=== PATIENT | female | born 1975 | race Asian ===

== ENCOUNTER 2017-11-26 14:43 | Emergency (ER) | payer OTHER ==
[2017-11-26 15:27] LABS: BILIRUBIN,URINE NEGATIVE (NEGATIVE); GLUCOSE, URINE (UA) >=1000 mg/dL (NEGATIVE); KETONES,URINE (UA) TRACE mg/dL (NEGATIVE); LEUKOCYTE ESTERASE, URINE NEGATIVE (NEGATIVE); NITRITE,URINE NEGATIVE (NEGATIVE); OCCULT BLOOD,URINE LARGE (NEGATIVE); PROTEIN,URINE NEGATIVE (NEGATIVE); UROBILINOGEN,URINE 0.2 (NORMAL) E.U./dL (NORMAL)
[2017-11-26 15:28] LABS: CLARITY,URINE CLEAR (CLEAR)
[2017-11-26 15:36] LABS: BACTERIA,URINE Rare /HPF (None Seen); RBC,URINE 0-5 /HPF (0-5); SQUAMOUS EPITHELIAL CELL,UR FEW Squamous (<= Few)
[2017-11-26 15:48] LABS: BASOPHILS # (AUTO) 0.1 10^3/uL (0.0-0.1); BASOPHILS % (AUTO) 1.2 %; EOSINOPHILS # (AUTO) 0.1 10^3/uL (0.0-0.7); EOSINOPHILS % (AUTO) 1.3 %; HGB - HEMOGLOBIN 14.7 g/dL (12.0-16.0); LYMPHOCYTES # (AUTO) 2.5 10^3/uL (1.5-3.5); LYMPHOCYTES % (AUTO) 24.5 %; MEAN CORPUSCULAR HEMOGLOBIN 28.4 pg (27.0-31.0); MEAN CORPUSCULAR HGB CONC 33.9 g/dL (32.0-36.0); MEAN CORPUSCULAR VOLUME 83.8 fL (81.0-99.0); MEAN PLATELET VOLUME 9.7 fL (7.9-10.8); MONOCYTES # (AUTO) 0.7 10^3/uL (0.0-1.0); NEUTROPHILS # (AUTO) 6.8 10^3/uL (1.5-6.6); PLT - PLATELET COUNT 204 10^3/uL (130-450); RED BLOOD COUNT 5.18 10^6/uL (4.20-5.40); RED CELL DISTRIBUTION WIDTH 13.5 % (12.0-15.0); WHITE BLOOD COUNT 10.2 x10^3/uL (4.8-10.8)
--- NOTE | 2017-11-26 15:50 | ED Physician Documentation ---
History of Present Illness - Stated complaint Stated Complaint: 6 WEEKS PG/BLEEDING - Chief complaint Chief Complaint: General - History obtained from History obtained from: Patient, Family - History of Present Illness Timing: Today Pain level max: 2 Pain level now: 2 Improved by: nothing Worsened by: nothing - Additonal information Additional information: Patient is 42 yo F est 6 weeks EGA. states vaginal bleeding today and concerned about a miscarriage. States took a home test that was positive Review of Systems Ten Systems: 10 systems reviewed and negative Constitutional: denies: Fever, Chills Ears: denies: Ear pain Nose: denies: Rhinorrhea / runny nose, Congestion Throat: denies: Sore throat Cardiac: denies: Chest pain / pressure Respiratory: denies: Cough : denies: Dysuria, Frequency, Hesitancy Skin: denies: Rash Musculoskeletal: denies: Neck pain, Back pain Neurologic: denies: Headache PD PAST MEDICAL HISTORY - Past Medical History Past Medical History: No - Past Surgical History Past Surgical History: Yes /BOILER TENDER: section - Present Medications Home Medications: Ambulatory Orders Medication Instructions Recorded Confirmed Metformin HCl 500 mg PO BID #60 tablet 11/26/17 - Allergies Allergies/Adverse Reactions: Allergies Allergy/AdvReac Type Severity Reaction Status Date / Time No Known Drug Allergies Allergy Verified 11/26/17 15:00 - Social History Does the pt smoke?: Yes Smoking Status: Current every day smoker Does the pt drink ETOH?: No Does the pt have substance abuse?: No - Immunizations Immunizations are current?: Yes - POLST Patient has POLST: No PD ED PE NORMAL - Vitals Vital signs reviewed: Yes - General General: Alert and oriented X 3, No acute distress - HEENT HEENT: Moist mucous membranes - Neck Neck: Supple, no meningeal sign - Cardiac Cardiac: RRR - Respiratory Respiratory: No respiratory distress, Clear bilaterally - Abdomen Abdomen: Soft, Non tender, Non distended - Derm Derm: Warm and dry - Neuro Neuro: Alert and oriented X 3 - Psych Psych: Normal mood, Normal affect Results - Vitals Vitals: Vital Signs - 24 hr 11/26/17 11/26/17 15:00 17:59 Temperature 36.3 C L Heart Rate 89 80 Respiratory 16 18 Rate Blood Pressure 108/68 105/83 H O2 Saturation 97 97 Oxygen O2 Source Room air - Labs Labs: Laboratory Tests 11/26/17 11/26/17 11/26/17 15:12 15:35 15:35 WBC RBC Hgb Hct MCV MCH MCHC RDW Plt Count MPV Neut # Lymph # [place] # Eos # Baso # Absolute Nucleated RBC Nucleated RBC % Sodium 128 L Potassium 3.6 Chloride 96 L Carbon Dioxide 20 L Anion Gap 12.0 BUN 19 Creatinine 0.6 Estimated GFR (MDRD) 111 Glucose 398 H POC Whole Bld Glucose Calcium 9.0 Total Bilirubin < 0.2 L AST 15 ALT 16 Alkaline Phosphatase 159 H Total Protein 7.2 Albumin 3.8 Globulin 3.4 Albumin/Globulin Ratio 1.1 Lipase 36 HCG, Quant < 0.60 Urine Color YELLOW Urine Clarity CLEAR Urine pH 6.0 Ur Specific [place] <=1.005 Urine Protein NEGATIVE Urine Glucose (UA) >=1000 H Urine Ketones TRACE Urine Occult Blood LARGE H Urine Nitrite NEGATIVE Urine Bilirubin NEGATIVE Urine Urobilinogen 0.2 (NORMAL) Ur Leukocyte Esterase NEGATIVE Urine RBC 0-5 Urine WBC 0-3 Ur Squamous Epith Cells FEW Squamous Urine Bacteria Rare Ur Microscopic Review INDICATED Urine Culture Comments NOT INDICATED Blood Type Antibody Screen 11/26/17 11/26/17 11/26/17 15:35 15:38 17:52 WBC 10.2 RBC 5.18 Hgb 14.7 Hct 43.4 MCV 83.8 MCH 28.4 MCHC 33.9 RDW 13.5 Plt Count 204 MPV 9.7 Neut # 6.8 H Lymph # 2.5 [place] # 0.7 Eos # 0.1 Baso # 0.1 Absolute Nucleated RBC 0.00 Nucleated RBC % 0.0 Sodium Potassium Chloride Carbon Dioxide Anion Gap BUN Creatinine Estimated GFR (MDRD) Glucose POC Whole Bld Glucose 274 H Calcium Total Bilirubin AST ALT Alkaline Phosphatase Total Protein Albumin Globulin Albumin/Globulin Ratio Lipase HCG, Quant Urine Color Urine Clarity Urine pH Ur Specific [place] Urine Protein Urine Glucose (UA) Urine Ketones Urine Occult Blood Urine Nitrite Urine Bilirubin Urine Urobilinogen Ur Leukocyte Esterase Urine RBC Urine WBC Ur Squamous Epith Cells Urine Bacteria Ur Microscopic Review Urine Culture Comments Blood Type O POSITIVE Antibody Screen NEGATIVE - Rads (name of study) pelvic US Radiology: Prelim report reviewed, EMP read contemporaneously, See rad report ( normal. no IUP or extrauterine .) PD MEDICAL DECISION MAKING - ED course Complexity details: reviewed results, re-evaluated patient, considered differential, d/w patient, d/w family ED course: Patient is a 42-year-old female who presents to the emergency department concerned about a possible miscarriage, her quantitative hCG is negative and her ultrasound is normal. She is however found to be diabetic. She states she has never been told she is diabetic before. Will start on metformin and have her follow-up closely with her doctor. She recently moved here and is currently looking for a doctor so will provide names of local physicians that she can call to follow-up. She is not vomiting. No evidence of DKA. Patient and family counseled regarding signs and symptoms for which I believe and urgent re-evaluation would be necessary. Patient with good understanding of and agreement to plan and is comfortable going home at this time This document was made in part using voice recognition software. While efforts are made to proofread this document, sound alike and grammatical errors may occur. Departure - Departure Disposition: 01 Home, Self Care Clinical Impression: Vaginal bleeding, New onset type 2 diabetes mellitus Condition: Good Instructions: ED Diabetes General Info Follow-Up: [facility] [Provider Group] [facility] [Provider Group] [facility] [Provider Group] Prescriptions: Metformin HCl 500 mg PO BID #60 tablet Comments: Take the metformin as prescribed. You need to follow up closely with your doctor for your diabetes. Discharge Date/Time: 11/26/17 18:05
[2017-11-26 16:02] LABS: ALBUMIN 3.8 g/dL (3.2-5.5); ALBUMIN/GLOBULIN RATIO 1.1 (1.0-2.2); ALKALINE PHOSPHATASE 159 IU/L (42-121); ALT ALANINE AMINOTRANSFERASE 16 IU/L (10-60); AST ASPARTATE AMINOTRANSFERASE 15 IU/L (10-42); BILIRUBIN,TOTAL < 0.2 mg/dL (0.2-1.0); BUN - BLOOD UREA NITROGEN 19 mg/dL (6-20); CARBON DIOXIDE - CO2 20 mmol/L (21-32); CHLORIDE 96 mmol/L (101-111); CREATININE 0.6 mg/dL (0.4-1.0); GFR - MDRD 111 (>89); GLUCOSE 398 mg/dL (70-100); LIPASE 36 U/L (22-51); SODIUM 128 mmol/L (135-145); TOTAL PROTEIN 7.2 g/dL (6.7-8.2)
--- NOTE | 2017-11-26 17:29 | Ultrasound Report ---
EXAM: FIRST TRIMESTER OBSTETRIC ULTRASOUND (Less than 11 weeks) EXAM DATE: 11/26/2017 04:47 PM. CLINICAL HISTORY: 6 weeks . Vaginal bleeding and cramping. LMP: 10/21/2017. COMPARISONS: None. TECHNIQUE: Transabdominal and transvaginal ultrasound examination with static image documentation. CLINICAL DATES: EGA weeks/days with GERALDINE based on LMP/prior ultrasound/other. MATERNAL STRUCTURES: Uterus: Anteverted, 10.3 x 4.6 x 5.2 cm. Unremarkable. Endometrium: 7 mm thick, normal, with no endometrial fluid or gestational sac. Cervix: Closed. Right Ovary/Adnexa: Nonvisualized ovary. No adnexal mass identified. Left Ovary/Adnexa: Unremarkable. No adnexal mass identified. The ovary measures 2.6 x 2.0 x 1.6 cm, volume cc. Free Fluid: None. Other: None. IMPRESSION: Normal pelvic ultrasound. No sign of intrauterine or extrauterine or free fluid . [facility] Referring Provider Line: [phone] SITE ID: [id number]
[2017-11-26] MEDS ORDERED: INSULIN REGULAR HUMAN 100 UNIT/1 ML 10 ML MDV SUBQ STA (17:37)
[2017-11-26 17:59] VITALS: BP 105/83
== END 2017-11-26 18:05 | disposition home or self-care (01) ==
LOC: ED 14:43
DX: N93.9 Abnormal uterine and vaginal bleeding, unspecified (principal); E11.9 Type 2 diabetes mellitus without complications; F17.200 Nicotine dependence, unspecified, uncomplicated
CPT/HCPCS: 36415; 76801; 76817; 80053; 81001; 83690; 84702; 85025; 86850; 86900; 86901; 99283; J1815; 81003; 87086

== ENCOUNTER 2020-01-11 14:20 | Outpatient (CLI) | payer OTHER ==
--- NOTE | 2020-01-13 11:58 | Ultrasound Report ---
Reason: MENORRHAGIA,DUB Procedure Date: 01/11/2020 Accession Number: [id number] / [id number] Procedure: US - Pelvic w/Transvaginal CPT Code: Final Report FULL RESULT: EXAM: PELVIC ULTRASOUND EXAM DATE: 01/11/2020 03:35 PM. CLINICAL HISTORY: Menorrhagia. Dysfunctional uterine bleeding. History of section. LMP 01/01/2020. G2, P1. COMPARISON: None. TECHNIQUE: Realtime transabdominal pelvic scan performed to identify the uterus and adnexa and as an overview of other pelvic structures, followed by transvaginal scan to provide greater detail of the uterus and adnexa, with static image documentation. FINDINGS: Uterus: 8.8 x 4.6 x 5.4 cm, volume 108 cc. Anteverted position. Normal overall size and echotexture. Masses: 1. Anterior intramural/subserosal, 1.3 x 1.3 x 1.5 cm. 2. Posterior intramural/subserosal, 1.9 x 1.1 x 1.4 cm. Endometrium: 7-8 mm. No increased vascularity. Trilaminar appearance. No endometrial masses. Cervix: Unremarkable. Right Ovary: 2.9 x 1.6 x 2.8 cm, volume 6.8 cc. Normal echotexture. Within the right ovary is a 1.1 x 1.4 x 1.2 cm follicular cyst. Left Ovary: 2.8 x 1.9 x 1.9 cm, volume 5.2 cc. Normal echotexture. Within the left ovary is a 1.5 x 1.3 x 1.5 cm hypoechoic lesion with peripheral vascularity, typically seen with a collapsing follicular/corpus cyst. Free Fluid: None. Other: None. IMPRESSION: 1. Myomatous uterus. Normal uterine volume. 2. Normal sonographic appearance of the endometrium. No endometrial masses. No increased vascularity. 3. Normal ovaries with a left ovarian 1.5 cm, lesion likely representing a collapsing follicular/corpus cyst. [facility]
== END 2020-01-11 14:21 | disposition home or self-care (01) ==
LOC: DI 14:20
PROVIDERS: ATTEND Obstetrics & Gynecology
DX: N92.0 Excessive and frequent menstruation with regular cycle (principal); N93.8 Other specified abnormal uterine and vaginal bleeding; N85.8 Other specified noninflammatory disorders of uterus; N83.8 Other noninflammatory disorders of ovary, fallopian tube and broad ligament
CPT/HCPCS: 76830; 76856

== ENCOUNTER 2021-01-10 11:05 | Outpatient (CLI) | payer OTHER ==
--- NOTE | 2021-01-10 11:41 | XRAY Report ---
PROCEDURE: Shoulder 3 View LT INDICATIONS: L SHOULDER STRAIN TECHNIQUE: 3 views of the shoulder were acquired. COMPARISON: None. FINDINGS: Bones: No fractures or dislocations. No suspicious bony lesions. Visualized ribs appear intact. Soft tissues: No suspicious soft tissue calcifications. IMPRESSION: No acute fracture. No osseous lesion. If symptoms and/or clinical suspicion for patholog y continue, further assessment with repeat plain films, or advanced imaging (e.g., CT, MRI, or bone s can) is recommended for further assessment. Reviewed by: Ovidio Tariq MD on 01/10/2021 11:39 AM [facility] Approved by: Ovidio Tariq MD on 01/10/2021 11:39 AM [facility] Station ID: [id number]
== END 2021-01-10 11:06 | disposition home or self-care (01) ==
LOC: DI.N 11:05
PROVIDERS: ATTEND Family Medicine
DX: S46.012A Strain of muscle(s) and tendon(s) of the rotator cuff of left shoulder, initial encounter (principal)

== ENCOUNTER 2022-12-16 10:56 | Outpatient (CLI) | payer OTHER ==
[2022-12-16 11:17] LABS: HCT - HEMATOCRIT 50.6 % (37.0-47.0); HGB - HEMOGLOBIN 16.4 g/dL (12.0-16.0); MEAN CORPUSCULAR HEMOGLOBIN 27.2 pg (27.0-31.0); MEAN CORPUSCULAR HGB CONC 32.4 g/dL (32.0-36.0); MEAN CORPUSCULAR VOLUME 84.1 fL (81.0-99.0); MEAN PLATELET VOLUME 11.1 fL (7.9-10.8); RED BLOOD COUNT 6.02 10^6/uL (4.20-5.40); RED CELL DISTRIBUTION WIDTH 13.7 % (12.0-15.0); WHITE BLOOD COUNT 7.8 x10^3/uL (4.8-10.8)
[2022-12-16 11:48] LABS: THYROID STIMULATING HORMONE 1.21 uIU/mL (0.34-5.60)
[2022-12-16 11:54] LABS: PROLACTIN 5.84 ng/mL
[2022-12-16 13:11] LABS: ESTIMATED AVERAGE GLUCOSE 315 mg/dL (70-100); HEMOGLOBIN A1c% 12.6 % (4.27-6.07)
[2022-12-16 15:28] LABS: FOLLICLE STIMULATING HORMONE 10.3 mIU/mL
== END 2022-12-16 10:57 | disposition home or self-care (01) ==
LOC: LAB 10:56
PROVIDERS: ATTEND Obstetrics & Gynecology
DX: N91.2 Amenorrhea, unspecified (principal)
CPT/HCPCS: 36415; 82670; 83001; 83036; 84146; 84443; 85027

== ENCOUNTER 2022-12-31 08:04 | Outpatient (CLI) | payer OTHER ==
--- NOTE | 2022-12-31 16:01 | Ultrasound Report ---
PROCEDURE: Pelvic w/Transvaginal INDICATIONS: SUBSEROUS LEIOMYOMA OF UTERUS TECHNIQUE: Real-time scanning was performed of the pelvic organs, with image documentation. Additional endovagi nal scanning was necessary due to incomplete visualization of the adnexal and endometrial structures by transabdominal scanning. COMPARISON: Pelvic ultrasound 01/11/2020 FINDINGS: Uterus: Uterus is anteverted and normal in size at 8.7 x 4.5 x 4.8 cm. The myometrium is mildly het erogeneous. 3 fibroids are visualized: -Anterior midline subserosal, 1.5 x 1.4 x 1.6 cm. Previously 1.3 x 1.3 x 1.5 cm. -Posterior midline intramural, 1.6 x 1.5 x 1.3 cm previously 1.9 x 1.1 x 1.4 cm. -Right anterior intramural, 1.0 x 0.8 x 1.0 cm. Not identified previously. The endometrium measures 5 mm in combined thickness. Ovaries: The right ovary was not visualized, likely related to bowel gas and/or senescent change. The left ovary measures 2.0 x 1.6 x 1.6 cm, with a calculated ovarian volume of 3 cc. No adnexal mass visualized. Other: No pathologic free abdominal or pelvic fluid. IMPRESSION: Uterine fibroids present as above. Reviewed by: Tyrell Wallace MD on 12/31/2022 4:00 PM PST Approved by: Tyrell Wallace MD on 12/31/2022 4:00 PM PST Station ID: [id number]
== END 2022-12-31 08:05 | disposition home or self-care (01) ==
LOC: DI 08:04
PROVIDERS: ATTEND Obstetrics & Gynecology
DX: D25.2 Subserosal leiomyoma of uterus (principal); D25.1 Intramural leiomyoma of uterus